=== PATIENT | female | born 1990 | race Caucasian/White ===

== ENCOUNTER 2016-09-26 21:10 | Inpatient (IN) | payer OTHER ==
[2016-09-26] MEDS ORDERED: DEXTROSE 5%-LACTATED RINGERS 1,000 ML IV SCH ×2 (22:15→23:00)
[2016-09-26 22:32] VITALS: BMI 27.2
[2016-09-26 22:33] LABS: BASOPHIL 0.3 % (0-2.0); EOSINOPHIL 0.7 % (0-4.5); MCH 29.5 pg (25.7-33.7); MCHC 33.2 g/dl (32.0-36.0); MEAN CELL VOLUME 88.8 fl (80-96); MEAN PLT VOLUME 12.1 fl (7.5-11.1); NEUTROPHILS 66.8 % (42.8-82.8); PLATELET COUNT 138 K/MM3 (134-434); RDW 15.4 % (11.6-15.6)
[2016-09-26 22:46] LABS: INR 0.88 (0.82-1.09); PROTHROMBIN TIME (PATIENT) 9.7 SEC (9.98-11.88)
[2016-09-26 22:48] LABS: ACTIVATED PTT 26.2 SECONDS (26.9-34.4)
[2016-09-26 22:49] LABS: ANION GAP 11 (8-16); CALCIUM 8.2 mg/dL (8.5-10.1); CO2 22 mmol/L (21-32); CREATININE 0.7 mg/dL (0.55-1.02); GLUCOSE,RANDOM 182 mg/dL (74-106)
--- NOTE | 2016-09-26 22:52 | HP ---
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: Alzheimer's, CVA, Dementia, Migraine, Multiple Sclerosis, Peripheral Neuropathy, Parkinson's, Seizure, Syncope, TIA, Vertigo, Other Cardiovascular: No: AFIB, Aneurysm, Aortic Insufficiency, Aortic Stenosis, CAD, CHF, Deep Vein Thrombosis, HTN, Hyperlipdemia, GA, Mitral Insufficiency, Mitral Stenosis, Murmur, Pulmonary Hypertension, Other Pulmonary: No: Asthma, Bronchitis, Cancer, COPD, O2 Dependent, Pneumonia, Previously Intubated, Pulmonary Embolus, Pulmonary Fibrosis, Sleep Apnea, Other Gastrointestinal: No: Ascites, Cancer, Constipation, Crohn's Disease, Diverticulitis, Diverticulosis, Esophageal Varices, Gastritis, GERD, GI Bleed, Hemorrhoids, Hiatal Hernia, Inflamatory Bowel Disease, Irritable Bowel Disease, Pancreatitis, Peptic Ulcer Disease, Ulcerative Colitis, Other Hepatobiliary: No: Cirrhosis, Cholelithiasis, Cholecystitis, Choledocholithiasis , Hepatitis A, Hepatitis B, Hepatitis C, Other Renal/: No: Renal Failure, Renal Inusuff, BPH, Cancer, Hematuria, Hemodialysis , Neurogenic Bladder, Renal Calculi, UTI, Other Reproductive: No: Ectopic , Endometriosis, Fibroids, PID, Polycystic Ovary Syndrome, Postmenopausal, Other ...: 3 ...Para: 2 Heme/Onc: No: Anemia, B12 Deficiency, Bleeding Disorder, Cancer, Current Chemotherapy, Current Radiation Therapy, Hemochromatosis, Hypercoaguable State, Myeloproliferative Synd, Sickle Cell Disease, Sickle Cell Trait, Thrombocytopenia, Other Infectious Disease: No: AIDS, C-Diff, Herpes Zoster, HIV, MRSA, STD's, Tuberculosis, VREF, Other Psych: No: Addictions, Anxiety, Bipolar, Depression, Panic, Psychosis, Schizophrenia, Other Musculoskeletal: No: Bursitis, Chronic low back pain, Hemiparesis, Hemiplegia, Osteoarthritis, Paraplegia, Other ENT: No: Allergic Rhinitis, Sinusitis, Other Dermatology: No: Basal Cell, Cellulitis, Eczema, Melanoma, Psoriasis, Squamous Cell, Other - Smoking History Smoking history: Never smoked Have you smoked in the past 12 months: No - Alcohol/Substance Use Hx Alcohol Use: No Home Medications - Allergies Allergies/Adverse Reactions: Allergies Allergy/AdvReac Type Severity Reaction Status Date / Time No Known Allergies Allergy Verified 09/26/16 21:51 - Home Medications Home Medications: Ambulatory Orders Vit/Iron Fumarate/FA [ Tablet] 1 tablet PO DAILY 09/26/16 Review of Systems - Review of Systems Constitutional: reports: No Symptoms Eyes: reports: No Symptoms HENT: reports: No Symptoms Neck: reports: No Symptoms Cardiovascular: reports: No Symptoms Respiratory: reports: No Symptoms Gastrointestinal: reports: No Symptoms Genitourinary: reports: No Symptoms Breasts: reports: No Symptoms Reported Musculoskeletal: reports: No Symptoms Neurological: reports: No Symptoms Endocrine: reports: No Symptoms Physical Examination Vital Signs: Vital Signs Temperature 99.2 F 09/26/16 21:10 Pulse Rate 86 09/26/16 21:10 Respiratory Rate 20 09/26/16 21:10 Blood Pressure 143/71 09/26/16 21:10 O2 Sat by Pulse Oximetry (%) Constitutional: Yes: Well Nourished Eyes: Yes: WNL HENT: Yes: WNL Neck: Yes: WNL Cardiovascular: Yes: WNL Respiratory: Yes: WNL Gastrointestinal: Yes: WNL ...Rectal Exam: Yes: WNL Renal/: Yes: WNL Breast(s): Yes: WNL Labs: CBC, BMP 09/26/16 21:50 Assessment/Plan as above admit expect
[2016-09-26] MEDS ORDERED: OXYTOCIN 15 UNITS/ LR 250 ML 250 ML IVPB SCH (23:00)
[2016-09-26 23:16] LABS: PLATELET COMMENT2 FEW GIANT PLTS; PLATELET ESTIMATE ADEQUATE (NORMAL)
[2016-09-27] MEDS ORDERED: oxyCODONE HCL 5 MG TABLET PO PRN (00:11)
[2016-09-27] MEDS ORDERED: BENZOCAINE 20% 57 GM BOTTLE TP PRN (00:11)
[2016-09-27] MEDS ORDERED: BISACODYL 10 MG SUPP.RECT RC PRN (00:11)
[2016-09-27] MEDS ORDERED: WITCH HAZEL 50% (TUCKS) 40 PAD/JAR PAD TP PRN (00:11)
[2016-09-27] MEDS ORDERED: METHYLERGONOVINE MALEATE 0.2 MG/1 ML AMP IM PRN (00:11)
[2016-09-27] MEDS ORDERED: BENZOCAINE 28 GM HEMORRHOIDAL OINTMENT TP PRN (00:11)
--- NOTE | 2016-09-27 00:13 | PN ---
Delivery - Delivery Type of Anesthesia: None Episiotomy/Laceration: None EBL (cc): 300 Delivery, Single - Feeding Plan Initial Plan: Elected not to breastfeed exclusively throughout hospitalization
--- NOTE | 2016-09-27 00:13 | PN ---
Post Progress Note Post Day: 1 Vital Signs: Vital Signs Temperature 98.3 F 09/26/16 22:58 Pulse Rate 73 09/26/16 22:58 Respiratory Rate 20 09/26/16 22:58 Blood Pressure 138/69 09/26/16 22:58 O2 Sat by Pulse Oximetry (%) Breast Exam: Yes: Soft Uterus: Yes: Fundus Firm Abdomen/GI: Yes: Abdomen soft Lochia: Yes: Rubra Lochia, amount: Small Extremities: Yes: Calves non-tender Perineum: Yes: Intact Activity: Ambulating - Labs Labs: CBC WBC 7.0 K/mm3 (4.0-10.0) 09/26/16 21:50 RBC 3.41 M/mm3 (3.60-5.2) L 09/26/16 21:50 Hgb 10.1 GM/dL (10.7-15.3) L 09/26/16 21:50 Hct 30.3 % (32.4-45.2) L 09/26/16 21:50 MCV 88.8 fl (80-96) 09/26/16 21:50 MCHC 33.2 g/dl (32.0-36.0) 09/26/16 21:50 RDW 15.4 % (11.6-15.6) 09/26/16 21:50 Plt Count 138 K/MM3 (134-434) 09/26/16 21:50 MPV 12.1 fl (7.5-11.1) H 09/26/16 21:50 Neutrophils % 66.8 % (42.8-82.8) 09/26/16 21:50 Lymphocytes % 27.6 % (8-40) 09/26/16 21:50 Monocytes % 4.6 % (3.8-10.2) 09/26/16 21:50 Eosinophils % 0.7 % (0-4.5) 09/26/16 21:50 Basophils % 0.3 % (0-2.0) 09/26/16 21:50 Differential Comment Slide scanned 09/26/16 21:50 Platelet Estimate Adequate (NORMAL) 09/26/16 21:50 Platelet Comment Few large plts 09/26/16 21:50 Platelet Comment Few giant plts 09/26/16 21:50 Assessment/Plan as above oob reg diet
[2016-09-27] MEDS ORDERED: OXYTOCIN 20 UNITS in 0.9% NS 1,000 ML IV SCH (00:15)
[2016-09-27] MEDS ORDERED: D5W-LR W/ 20 UNITS OXYTOCIN 1,000 ML IV SCH (00:45)
[2016-09-27] MEDS: IBUPROFEN 600 MG TABLET (FP) PO PRN ×3 (01:00→18:12)
[2016-09-27] MEDS: ACETAMINOPHEN 325 MG TABLET (FP) PO PRN ×3 (01:00→18:06)
[2016-09-27] MEDS ORDERED: DIPHTH,PERTUSS(ACELL),TET 0.5 ML DISP.SYRIN IM ONE (10:00)
[2016-09-28 01:10] VITALS: PULSE 52
[2016-09-28] MEDS: ACETAMINOPHEN 325 MG TABLET (FP) PO PRN ×2 (03:55→08:12)
[2016-09-28] MEDS: IBUPROFEN 600 MG TABLET (FP) PO PRN ×2 (03:56→08:11)
[2016-09-28 08:25] LABS: BASOPHIL 0.3 % (0-2.0); EOSINOPHIL 1.3 % (0-4.5); MCH 29.2 pg (25.7-33.7); MCHC 33.1 g/dl (32.0-36.0); MEAN CELL VOLUME 88.1 fl (80-96); MEAN PLT VOLUME 11.3 fl (7.5-11.1); NEUTROPHILS 70.1 % (42.8-82.8); PLATELET COUNT 107 K/MM3 (134-434); RDW 15.6 % (11.6-15.6); WHITE BLOOD COUNT 9.8 K/mm3 (4.0-10.0)
--- NOTE | 2016-09-28 10:06 | DS ---
Physical Exam-OFFICE MANAGER EXECUTIVE ASSISTANT Vital Signs: Vital Signs Temperature 98.7 F 09/27/16 22:00 Pulse Rate 52 L 09/27/16 22:00 Respiratory Rate 18 09/27/16 22:00 Blood Pressure 136/77 09/27/16 22:00 O2 Sat by Pulse Oximetry (%) Constitutional: Yes: Well Nourished Eyes: Yes: Conjunctiva Clear HENT: Yes: Atraumatic Neck: Yes: Supple, Trachea Midline Cardiovascular: Yes: Regular Rate and Rhythm Respiratory: Yes: Regular, CTA Bilaterally Gastrointestinal: Yes: Normal Bowel Sounds External Genitalia: Yes: Normal Vaginal Exam: Yes: Normal Uterus: Yes: Firm ....Post : Yes: Uterus firm, Moderate lochia serosa Breast(s): Yes: WNL Musculoskeletal: Yes: WNL Extremities: Yes: WNL Neurological: Yes: Alert, Oriented Psychiatric: Yes: Alert, Oriented Labs: CBC, BMP 09/28/16 07:00 09/26/16 21:50 Delivery - Delivery Vaginal Delivery: Spontaneous Type of Anesthesia: None Episiotomy/Laceration: None EBL (cc): 300 Delivery, Single - Stages of Labor Date 1st Stage Initiatied: 09/26/16 Time 1st Stage Initiated: 20:30 Date 2nd Stage Initiated: 09/26/16 Time 2nd Stage Initiated: 23:50 Date of Delivery: 09/26/16 Time of Delivery: 23:56 Time Placenta Delivered: 00:00 - Condition of Infant 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 Infant Gender: Female Weight: 6 lb 7 oz Position: Left, OA Total Hours ROM (Hrs/Mins): 3H 45M - 1 Minute Total Score: 9 5 Minutes Total Score: 9 - Feeding Plan Initial Plan: Elected not to breastfeed exclusively throughout hospitalization Discharge Summary Reason For Visit: ADMIT LDR Labor pain Procedures: Principal: Normal spontaneous vaginal delivery Hospital Course: Routine care Condition: Good - Instructions Diet, Activity, Other Instructions: Regular diet No douching, no sexual intercourse x 6 weeks F/U in clinic in 6 weeks Disposition: HOME - Home Medications Comprehensive Discharge Medication List: Ambulatory Orders Vit/Iron Fumarate/FA [ Tablet] 1 tablet PO DAILY 09/26/16
[2016-09-28 14:18] VITALS: BP 124/84; TEMP 98.2
[2016-09-28] MEDS ORDERED: SENNOSIDES/DOCUSATE COMBO (SENNA PLUS) TABLET (UD) PO PRN (22:00)
== END 2016-09-28 14:40 | disposition home or self-care (01) | DRG 560 ==
LOC: JLDR 21:10 → J3W 09-27 01:48
PROVIDERS: ADMIT Obstetrics & Gynecology; ATTEND Obstetrics & Gynecology
PROC: 10E0XZZ Delivery of Products of Conception, External Approach (ICD-10-PCS; principal; 2016-09-26)
DX: O80 Encounter for full-term uncomplicated delivery (principal); Z3A.38 38 weeks gestation of pregnancy; Z37.0 Single live birth
CPT/HCPCS: 36415; 59409; 80048; 85025; 85610; 85730; 86593; 86850; 86900; 86901; 90715

== ENCOUNTER 2020-07-10 11:44 | Emergency (ER) | payer OTHER ==
[2020-07-10 12:05] VITALS: BP 129/76; PULSE 68; TEMP 98.5; BMI 25.2
[2020-07-10] MEDS ORDERED: ACETAMINOPHEN 500 MG TABLET (FP) PO ONE (12:50)
[2020-07-10 13:08] LABS: BASO % 0.4 % (0-2.0); EOS % 0.7 % (0-4.5); HEMATOCRIT 35.8 % (32.4-45.2); HEMOGLOBIN 12.2 GM/dL (10.7-15.3); LYMPH % 22.8 % (8-40); MCH 33.2 pg (25.7-33.7); MCHC 34.2 g/dl (32.0-36.0); MEAN CELL VOLUME 97.3 fl (80-96); MONO % 5.1 % (3.8-10.2); PLATELET COUNT 204 K/MM3 (134-434); RBC 3.68 M/mm3 (3.60-5.2); RDW 12.5 % (11.6-15.6); WHITE BLOOD COUNT 8.7 K/mm3 (4.0-10.0)
[2020-07-10] MEDS ORDERED: ACETAMINOPHEN 500 MG TABLET (FP) ONE (13:21)
[2020-07-10 13:26] LABS: POTASSIUM 3.5 mmol/L (3.5-5.1)
[2020-07-10 13:28] LABS: ALBUMIN 4.1 g/dl (3.4-5.0); BLOOD UREA NITROGEN 9.2 mg/dL (7-18); CALCIUM 8.9 mg/dL (8.5-10.1)
[2020-07-10 13:32] LABS: CREATININE 0.6 mg/dL (0.55-1.3)
[2020-07-10 13:33] LABS: BILIRUBIN,TOTAL 0.5 mg/dL (0.2-1); TOT PROT 7.4 g/dl (6.4-8.2)
[2020-07-10 15:34] LABS: EPI CELLS >36 /uL (0-25.1); HYALINE CASTS 2 /uL (0-3.1); URINE APPEARANCE CLOUDY; URINE BACTERIA 466 /uL (0-1359); URINE BILIRUBIN NEGATIVE (NEGATIVE); URINE COLOR ORANGE; URINE GLUCOSE (UA) NEGATIVE (NEGATIVE); URINE KETONE NEGATIVE (NEGATIVE); URINE LEUK ESTERASE 1+ (NEGATIVE); URINE NITRITE NEGATIVE (NEGATIVE); URINE PROTEIN TRACE (NEGATIVE); URINE RBC 2459 /uL (0-23.9); URINE WBC 90 /uL (0-25.8)
== END 2020-07-10 16:46 | disposition home or self-care (01) ==
LOC: JER 11:44
DX: O20.0 Threatened abortion (principal); Z3A.01 Less than 8 weeks gestation of pregnancy
CPT/HCPCS: 36415; 76817-TC; 80053; 81003; 84702; 85025; 86850; 86900; 86901; 87086; 99284-25

== ENCOUNTER 2020-07-12 09:52 | Emergency (ER) | payer OTHER ==
[2020-07-12 09:59] VITALS: BMI 27.2
[2020-07-12 10:08] VITALS: BP 105/68; PULSE 66; TEMP 97.6
[2020-07-12 10:34] LABS: BASO % 0.7 % (0-2.0); EOS % 1.9 % (0-4.5); HEMATOCRIT 34.1 % (32.4-45.2); HEMOGLOBIN 11.8 GM/dL (10.7-15.3); LYMPH % 30.6 % (8-40); MCH 33.4 pg (25.7-33.7); MCHC 34.5 g/dl (32.0-36.0); MEAN CELL VOLUME 96.8 fl (80-96); MEAN PLT VOLUME 9.1 fl (7.5-11.1); MONO % 4.1 % (3.8-10.2); NEUT % 62.7 % (42.8-82.8); PLATELET COUNT 200 K/MM3 (134-434); RBC 3.52 M/mm3 (3.60-5.2); RDW 12.2 % (11.6-15.6)
[2020-07-12 10:51] LABS: CALCIUM 8.4 mg/dL (8.5-10.1)
[2020-07-12 10:52] LABS: ALBUMIN 3.9 g/dl (3.4-5.0); BLOOD UREA NITROGEN 12.6 mg/dL (7-18)
[2020-07-12 10:56] LABS: CREATININE 0.6 mg/dL (0.55-1.3)
[2020-07-12 10:58] LABS: BILIRUBIN,TOTAL 0.4 mg/dL (0.2-1)
[2020-07-12 11:15] LABS: EPI CELLS >36 /uL (0-25.1); HCG,QUALITATIVE URINE Negative; HYALINE CASTS 2 /uL (0-3.1); PH,URINE 5.5 (5.0-8.0); URINE APPEARANCE CLEAR; URINE BACTERIA 1013 /uL (0-1359); URINE BILIRUBIN NEGATIVE (NEGATIVE); URINE COLOR YELLOW; URINE GLUCOSE (UA) NEGATIVE (NEGATIVE); URINE KETONE NEGATIVE (NEGATIVE); URINE LEUK ESTERASE 1+ (NEGATIVE); URINE NITRITE NEGATIVE (NEGATIVE); URINE PROTEIN NEGATIVE (NEGATIVE); URINE RBC 17 /uL (0-23.9); URINE UROBILINOGEN 0.2 mg/dL (0.2-1.0); URINE WBC 8 /uL (0-25.8)
== END 2020-07-12 11:34 | disposition home or self-care (01) ==
LOC: JER 09:52
DX: O03.9 Complete or unspecified spontaneous abortion without complication (principal)
CPT/HCPCS: 36415; 80053; 81003; 84702; 84703; 85025; 87086; 87186; 99284-25

== ENCOUNTER 2020-08-06 19:20 | Emergency (ER) | payer OTHER ==
[2020-08-06 19:36] VITALS: TEMP 97.9; BMI 23.6
[2020-08-06] MEDS ORDERED: ACETAMINOPHEN 1000 MG/100 ML VIAL (NON FORMULARY) IVPB ONE (20:11)
[2020-08-06] MEDS ORDERED: SODIUM CHLORIDE 1,000 ML IV STA (20:11)
[2020-08-06 20:28] LABS: HCG,QUALITATIVE URINE Negative
[2020-08-06 20:29] LABS: EPI CELLS >36 /uL (0-25.1); HYALINE CASTS 7 /uL (0-3.1); URINE APPEARANCE CLOUDY; URINE BACTERIA 1811 /uL (0-1359); URINE BILIRUBIN NEGATIVE (NEGATIVE); URINE COLOR YELLOW; URINE GLUCOSE (UA) NEGATIVE (NEGATIVE); URINE KETONE TRACE (NEGATIVE); URINE LEUK ESTERASE 2+ (NEGATIVE); URINE NITRITE NEGATIVE (NEGATIVE); URINE PROTEIN TRACE (NEGATIVE); URINE RBC 20 /uL (0-23.9); URINE WBC 183 /uL (0-25.8)
[2020-08-06] MEDS ORDERED: ACETAMINOPHEN INJECTION 100 ML IVPB ONE (20:39)
[2020-08-06 21:08] LABS: BASO % 0.6 % (0-2.0); EOS % 1.9 % (0-4.5); HEMATOCRIT 37.5 % (32.4-45.2); HEMOGLOBIN 12.9 GM/dL (10.7-15.3); LYMPH % 30.8 % (8-40); MCH 33.2 pg (25.7-33.7); MCHC 34.4 g/dl (32.0-36.0); MEAN CELL VOLUME 96.6 fl (80-96); MEAN PLT VOLUME 9.8 fl (7.5-11.1); MONO % 5.7 % (3.8-10.2); PLATELET COUNT 195 K/MM3 (134-434); RBC 3.89 M/mm3 (3.60-5.2); RDW 12.3 % (11.6-15.6); WHITE BLOOD COUNT 7.7 K/mm3 (4.0-10.0)
[2020-08-06 21:20] LABS: INR 1.01 (0.83-1.09); PROTHROMBIN TIME (PATIENT) 12.2 SEC (9.7-13.0)
[2020-08-06 21:29] LABS: CALCIUM 9.2 mg/dL (8.5-10.1)
[2020-08-06 21:30] LABS: ALBUMIN 4.4 g/dl (3.4-5.0); BLOOD UREA NITROGEN 15.4 mg/dL (7-18)
[2020-08-06 21:33] LABS: CREATININE 0.7 mg/dL (0.55-1.3)
[2020-08-06 21:35] LABS: BILIRUBIN,TOTAL 0.5 mg/dL (0.2-1); TOT PROT 7.9 g/dl (6.4-8.2)
[2020-08-06 23:49] VITALS: BP 118/66; PULSE 80
== END 2020-08-06 23:48 | disposition home or self-care (01) ==
LOC: JER 19:20
PROC: 3E0333Z Introduction of Anti-inflammatory into Peripheral Vein, Percutaneous Approach (ICD-10-PCS; principal; 2020-08-06)
PROC: 3E0337Z Introduction of Electrolytic and Water Balance Substance into Peripheral Vein, Percutaneous Approach (ICD-10-PCS; 2020-08-06)
DX: R10.31 Right lower quadrant pain (principal); N30.00 Acute cystitis without hematuria
CPT/HCPCS: 36415; 76830-TC; 80053; 81003; 84703; 85025; 85610; 87086; 87491; 87591; 99284-25; J0131

== ENCOUNTER 2021-05-01 08:40 | Inpatient (IN) | payer OTHER ==
[2021-05-01 11:09] LABS: BASO % 0.5 % (0-2.0); EOS % 0.6 % (0-4.5); HEMATOCRIT 32.3 % (32.4-45.2); HEMOGLOBIN 10.6 GM/dL (10.7-15.3); LYMPH % 23.1 % (8-40); MCH 30.9 pg (25.7-33.7); MCHC 32.9 g/dl (32.0-36.0); MEAN CELL VOLUME 94.1 fl (80-96); MEAN PLT VOLUME 11.2 fl (7.5-11.1); NEUT % 69.8 % (42.8-82.8); PLATELET COUNT 134 10^3/uL (134-434); RBC 3.43 M/mm3 (3.60-5.2); RDW 13.9 % (11.6-15.6); WHITE BLOOD COUNT 6.6 K/mm3 (4.0-10.0)
[2021-05-01 11:18] VITALS: BMI 27.3
[2021-05-01 11:20] LABS: INR 0.89 (0.83-1.09); PROTHROMBIN TIME (PATIENT) 10.2 SEC (9.7-13.0)
[2021-05-01 11:23] LABS: ACTIVATED PTT 24.6 SECONDS (25.2-36.5)
[2021-05-01 11:30] LABS: BLOOD UREA NITROGEN 9.4 mg/dL (7-18); CALCIUM 8.7 mg/dL (8.5-10.1)
[2021-05-01] MEDS ORDERED: DINOPROSTONE 10 MG VAGINAL SUPPOSITORY VG ONE (11:30)
[2021-05-01 11:34] LABS: CREATININE 0.6 mg/dL (0.55-1.3)
[2021-05-01] MEDS ORDERED: BUTORPHANOL TARTRATE 2 MG/ML VIAL IVPB ONE (11:35)
[2021-05-01] MEDS ORDERED: PROMETHAZINE HCL 25 MG/1 ML VIAL IVPB ONE (11:35)
[2021-05-01] MEDS ORDERED: ELECTROLYTE-148 SOLN 1,000 ML IV SCH (11:45)
[2021-05-01] MEDS ORDERED: AMPICILLIN - 2 GM in SODIUM CHLORIDE 100 ML IVPB ONE (14:01)
[2021-05-01] MEDS ORDERED: AMPICILLIN SODIUM 2 GM VIAL ONE (14:02)
[2021-05-01] MEDS ORDERED: AMPICILLIN SODIUM 1 GM VIAL ONE (16:50)
[2021-05-01] MEDS ORDERED: BUTORPHANOL TARTRATE 2 MG/ML VIAL ONE (17:16)
[2021-05-01] MEDS ORDERED: PROMETHAZINE HCL 25 MG/1 ML VIAL ONE (17:16)
[2021-05-01] MEDS ORDERED: OXYTOCIN 20 UNITS in 0.9% NS 20 UNIT/1,000 ML INFUS.BAG IV ONE (18:03)
[2021-05-01] MEDS ORDERED: METHYLERGONOVINE MALEATE 0.2 MG/1 ML AMP IM PRN (18:27)
[2021-05-01] MEDS ORDERED: oxyCODONE HCL 5 MG TABLET PO PRN (18:27)
[2021-05-01] MEDS ORDERED: ACETAMINOPHEN 325 MG TABLET (FP) PO PRN (18:27)
[2021-05-01] MEDS ORDERED: BENZOCAINE 28 GM HEMORRHOIDAL OINTMENT TP PRN (18:27)
[2021-05-01] MEDS ORDERED: BISACODYL 10 MG SUPP.RECT RC PRN (18:27)
[2021-05-01] MEDS ORDERED: WITCH HAZEL 50% (TUCKS) 40 PAD/JAR PAD TP PRN (18:27)
[2021-05-01] MEDS ORDERED: BENZOCAINE 20% 57 GM BOTTLE TP PRN (18:27)
[2021-05-01 18:29] LABS: CORD HCO3 29.1 mmHg (20-29); CORD PCO2 57.6 mmHg (30-78); CORD pH 7.322 (7.14-7.44)
[2021-05-01] MEDS ORDERED: OXYTOCIN 20 UNITS in 0.9% NS 20 UNIT/1,000 ML INFUS.BAG IV SCH (18:30)
[2021-05-01 18:34] LABS: CORD HCO3 26.8 mmHg (20-29); CORD pH 7.374 (7.14-7.44)
[2021-05-01] MEDS: IBUPROFEN 600 MG TABLET (FP) PO PRN (20:47)
[2021-05-01] MEDS: AMPICILLIN - 1 GM in SODIUM CHLORIDE 100 ML IVPB SCH (22:06)
[2021-05-02] MEDS: IBUPROFEN 600 MG TABLET (FP) PO PRN ×2 (08:21→17:08)
[2021-05-02] MEDS: FERROUS SO4 325 MG TABLET (FP) PO SCH ×2 (08:22→17:07)
[2021-05-02] MEDS: PRENATAL VITAMINS W/ FOLIC ACID TABLET (FP) PO SCH (09:21)
[2021-05-02 09:57] LABS: BASO % 0.4 % (0-2.0); EOS % 0.6 % (0-4.5); HEMATOCRIT 29.1 % (32.4-45.2); HEMOGLOBIN 9.5 GM/dL (10.7-15.3); LYMPH % 23.6 % (8-40); MCHC 32.6 g/dl (32.0-36.0); MEAN CELL VOLUME 94.9 fl (80-96); MEAN PLT VOLUME 11.3 fl (7.5-11.1); MONO % 5.5 % (3.8-10.2); NEUT % 69.9 % (42.8-82.8); PLATELET COUNT 125 10^3/uL (134-434); RBC 3.07 M/mm3 (3.60-5.2); RDW 14.4 % (11.6-15.6); WHITE BLOOD COUNT 8.9 K/mm3 (4.0-10.0)
[2021-05-02] MEDS: AMPICILLIN - 1 GM in SODIUM CHLORIDE 100 ML IVPB SCH (16:06)
[2021-05-02] MEDS ORDERED: SENNOSIDES/DOCUSATE COMBO (SENNA PLUS) TABLET (UD) PO PRN (22:00)
[2021-05-03] MEDS: IBUPROFEN 600 MG TABLET (FP) PO PRN (05:14)
[2021-05-03] MEDS: FERROUS SO4 325 MG TABLET (FP) PO SCH (08:46)
[2021-05-03 08:57] VITALS: BP 116/78; PULSE 92; TEMP 98.4
[2021-05-03] MEDS: PRENATAL VITAMINS W/ FOLIC ACID TABLET (FP) PO SCH (09:00)
[2021-05-03] MEDS ORDERED: medroxyPROGESTERone ACET 150 MG/1 ML VIAL IM ONE (09:01)
== END 2021-05-03 13:15 | disposition home or self-care (01) | DRG 560 ==
LOC: JLDR 08:40 → J3W 20:03
PROVIDERS: ADMIT Obstetrics & Gynecology; ATTEND Obstetrics & Gynecology
PROC: 10E0XZZ Delivery of Products of Conception, External Approach (ICD-10-PCS; principal; 2021-05-01)
PROC: 3E0P7VZ Introduction of Hormone into Female Reproductive, Via Natural or Artificial Opening (ICD-10-PCS; 2021-05-01)
DX: O36.5930 Maternal care for other known or suspected poor fetal growth, third trimester, not applicable or unspecified (principal); O24.429 Gestational diabetes mellitus in childbirth, unspecified control; Z3A.38 38 weeks gestation of pregnancy; Z37.0 Single live birth; Z86.16 Personal history of COVID-19
CPT/HCPCS: 36415; 36600; 59409; 80048; 82803; 82962; 83036; 85025; 85610; 85730; 86780; 86850; 86900; 86901; C9803; U0003; U0005

== ENCOUNTER 2021-06-22 05:17 | Day surgery (SDC) | payer OTHER ==
[2021-06-17 14:51] VITALS: BMI 28.3
[2021-06-22] MEDS ORDERED: BUPIVACAINE HCL/PF 0.5% (5MG/ML) 10 ML VIAL ONE (12:57)
[2021-06-22] MEDS ORDERED: PROPOFOL 20 ML ONE (14:13)
[2021-06-22] MEDS ORDERED: DEXAMETHASONE SOD PHOSPHATE 4 MG/1 ML VIAL ONE (14:13)
[2021-06-22] MEDS ORDERED: KETOROLAC TROMETHAMINE 30 MG/1 ML VIAL ONE ×2 (14:13→15:00)
[2021-06-22] MEDS ORDERED: MIDAZOLAM HCL 2 MG/2 ML SINGLE DOSE VIAL ONE (14:13)
[2021-06-22] MEDS ORDERED: LIDOCAINE HCL/PF 2% SDV 5ML VIAL ONE (14:13)
[2021-06-22] MEDS ORDERED: ONDANSETRON 4 MG/2 ML VIAL ONE (14:13)
[2021-06-22] MEDS ORDERED: ROCURONIUM BROMIDE 100 MG/10 ML VIAL ONE (14:29)
[2021-06-22] MEDS ORDERED: BUPIVACAINE HCL/PF 0.25% (2.5MG/ML) 10 ML VIAL IJ ONE ×4 (14:37→14:45)
[2021-06-22] MEDS ORDERED: oxyCODONE HCL 5 MG TABLET PO PRN (14:48)
[2021-06-22] MEDS ORDERED: LACTATED RINGERS SOLUTION 1,000 ML IV SCH (15:00)
[2021-06-22] MEDS ORDERED: NEOSTIGMINE METHYLSULFATE 0.5 MG/ML - 10 ML MDV ONE (15:08)
[2021-06-22] MEDS ORDERED: MINERAL OIL/PETROLATUM,WHITE 3.5 GM TUBE ONE (15:12)
[2021-06-22 18:01] VITALS: BP 118/72; PULSE 68; TEMP 98.3
== END 2021-06-22 18:00 | disposition home or self-care (01) ==
LOC: JASU-SURG 05:17
PROVIDERS: ATTEND Obstetrics & Gynecology
PROC: 0UT74ZZ Resection of Bilateral Fallopian Tubes, Percutaneous Endoscopic Approach (ICD-10-PCS; principal; 2021-06-22 14:00)
DX: Z30.2 Encounter for sterilization (principal)
CPT/HCPCS: 81025; 88302-TC; 94760

== ENCOUNTER 2021-07-05 11:10 | Emergency (ER) | payer OTHER ==
[2021-07-05 11:27] VITALS: BP 119/77; PULSE 99; TEMP 98.3; BMI 24.0
[2021-07-05] MEDS ORDERED: KETOROLAC TROMETHAMINE 30 MG/1 ML VIAL IVPUSH ONE (12:13)
[2021-07-05 12:37] LABS: BASO % 0.5 % (0-2.0); HEMATOCRIT 35.2 % (32.4-45.2); LYMPH % 24.4 % (8-40); MCH 31.2 pg (25.7-33.7); MCHC 34.1 g/dl (32.0-36.0); MEAN CELL VOLUME 91.4 fl (80-96); MEAN PLT VOLUME 9.3 fl (7.5-11.1); MONO % 4.3 % (3.8-10.2); NEUT % 68.8 % (42.8-82.8); PLATELET COUNT 263 10^3/uL (134-434); RBC 3.85 M/mm3 (3.60-5.2); RDW 13.7 % (11.6-15.6); WHITE BLOOD COUNT 6.1 K/mm3 (4.0-10.0)
[2021-07-05] MEDS ORDERED: KETOROLAC TROMETHAMINE 30 MG/1 ML VIAL ONE (12:38)
[2021-07-05 12:42] LABS: EPI CELLS 5 /uL (0-25.1); HYALINE CASTS 1 /uL (0-3.1); URINE APPEARANCE CLEAR; URINE BACTERIA 1496 /uL (0-1359); URINE BILIRUBIN NEGATIVE (NEGATIVE); URINE COLOR YELLOW; URINE GLUCOSE (UA) NEGATIVE (NEGATIVE); URINE KETONE NEGATIVE (NEGATIVE); URINE LEUK ESTERASE TRACE (NEGATIVE); URINE NITRITE NEGATIVE (NEGATIVE); URINE PROTEIN NEGATIVE (NEGATIVE); URINE RBC 13 /uL (0-23.9); URINE UROBILINOGEN 0.2 mg/dL (0.2-1.0); URINE WBC 13 /uL (0-25.8)
[2021-07-05 13:00] LABS: ALBUMIN 4.1 g/dl (3.4-5.0); BLOOD UREA NITROGEN 16.8 mg/dL (7-18)
[2021-07-05 13:03] LABS: CREATININE 0.6 mg/dL (0.55-1.3)
[2021-07-05 13:04] LABS: BILIRUBIN,TOTAL 0.8 mg/dL (0.2-1)
== END 2021-07-05 16:09 | disposition home or self-care (01) ==
LOC: JER 11:10
PROC: 3E033GC Introduction of Other Therapeutic Substance into Peripheral Vein, Percutaneous Approach (ICD-10-PCS; principal; 2021-07-05)
DX: R10.84 Generalized abdominal pain (principal); G89.18 Other acute postprocedural pain
CPT/HCPCS: 36415; 74177-TC; 80053; 81003; 84703; 85025; 86850; 86900; 86901; 87086; 87186; 99285-25